=== PATIENT | male | born 1940 | race Two or more races ===

== ENCOUNTER 2024-06-20 20:13 | Inpatient (IN) | payer MEDICARE, OTHER ==
[~2024-06-20] VITALS: Ht 170.2 cm; Wt 87.1 kg
[2024-06-20 21:23] LABS: BASOPHILS % (AUTO) 0.6 % (0.0-2.0); EOSINOPHILS # (AUTO) 0.3 K/uL (0.0-0.7); EOSINOPHILS % (AUTO) 5.5 % (0.0-6.0); HEMATOCRIT 41 % (39-51); HEMOGLOBIN 13.2 g/dL (13.5-17.5); LYMPHOCYTES # (AUTO) 1.7 K/uL (0.8-4.8); LYMPHOCYTES % (AUTO) 26.1 % (20.0-44.0); MEAN CORPUSCULAR HEMOGLOBIN 27 PG (26.0-33.0); MEAN CORPUSCULAR HGB CONC 33 g/dl (31.0-36.0); MEAN CORPUSCULAR VOLUME 83 fL (80-96); MONOCYTES # (AUTO) 0.5 K/uL (0.1-1.30); MONOCYTES % (AUTO) 8.6 % (2.0-12.0); NEUTROPHILS # (AUTO) 3.7 K/uL (1.8-8.9); NEUTROPHILS % (AUTO) 59.2 % (43.0-81.0); PLATELET COUNT (AUTO) 232 K/uL (150-450); RED BLOOD CELL COUNT(AUTO) 4.93 MIL/uL (4.5-6.0); RED CELL DISTRIBUTION WIDTH 15.1 % (11.5-15.0); WHITE BLOOD COUNT (AUTO) 6.3 K/uL (4.3-11.0)
[2024-06-20 21:47] LABS: ALANINE AMINOTRANSFERASE 28 U/L (12-78); ALBUMIN 3.4 g/dL (3.4-5.0); ALCOHOL, BLOOD < 3 mg/dL (0-10); ALKALINE PHOSPHATASE 36 U/L (46-116); ASPARTATE AMINOTRANSFERASE 32 U/L (15-37); BILIRUBIN,DIRECT 0.2 mg/dL (0.0-0.2); BILIRUBIN,TOTAL 0.4 mg/dL (0.2-1.0); CALCIUM, SERUM 9.3 mg/dL (8.5-10.1); CARBON DIOXIDE 29 mmol/L (21-32); CHLORIDE 102 mmol/L (98-107); CREATININE 1.4 mg/dL (0.6-1.3); GLUCOSE 138 mg/dL (74-106); POTASSIUM 4.1 mmol/L (3.5-5.1); SODIUM SERUM 137 mmol/L (136-145); TOTAL PROTEIN, SERUM 7.3 g/dL (6.4-8.2); UREA NITROGEN, BLOOD 25 mg/dL (7-18)
[2024-06-20 21:55] LABS: ACETAMINOPHEN <10 ug/ml (10-30); SALICYLATE 1.1 mg/dL (2.8-20.0)
[2024-06-21 00:24] LABS: APPEARANCE,URINE CLEAR (CLEAR); BILIRUBIN,URINE NEGATIVE (NEGATIVE); BLOOD, URINE NEGATIVE Ery/uL (NEGATIVE); COLOR,URINE YELLOW (YELLOW); KETONES,URINE TRACE mg/dL (NEGATIVE); LEUKOCYTE ESTERASE ,URINE TRACE (NEGATIVE); NITRITE, URINE NEGATIVE (NEGATIVE); PH,URINE 6.5 (5.0-8.0); PROTEIN,URINE NEGATIVE (NEGATIVE); UGLUCOSE NEGATIVE (NEGATIVE); UROBILINOGEN,URINE 0.2 EU/dL (0.2)
[2024-06-21 00:26] LABS: AMPHETAMINE, URINE NEGATIVE (NEGATIVE); BARBITURATE, URINE NEGATIVE (NEGATIVE); BENZODIAZEPINE, URINE NEGATIVE (NEGATIVE); CANNABINOID, URINE NEGATIVE (NEGATIVE); COCCAINE, URINE NEGATIVE (NEGATIVE); OPIATE, URINE NEGATIVE (NEGATIVE); PHENCYCLIDINE SCREEN,URINE NEGATIVE (NEGATIVE)
[2024-06-21 00:32] LABS: ADD URINE CULTURE YES; BACTERIA,URINE Rare /HPF (None Seen); RBC,URINE 0-2 /HPF (0-2); SQUAMOUS EPITHELIAL CELL,UR Few /HPF (None Seen)
[2024-06-21] MEDS ORDERED: MELA5TAB25 PO (01:23)
[2024-06-21] MEDS ORDERED: BUME1TAB8 PO (01:23)
[2024-06-21] MEDS ORDERED: INSU100V39 SQ (01:23)
[2024-06-21] MEDS ORDERED: FLUT1BLS15 INH (01:23)
[2024-06-21] MEDS ORDERED: GUAI100S9 PO (01:23)
[2024-06-21] MEDS ORDERED: MELO-107 PO (01:23)
[2024-06-21] MEDS ORDERED: TRAZ-182 PO (01:23)
[2024-06-21] MEDS ORDERED: GABA-532 PO (01:23)
[2024-06-21] MEDS ORDERED: CLOP75TA15 PO (01:23)
[2024-06-21] MEDS ORDERED: FENO145T21 PO (01:23)
[2024-06-21] MEDS ORDERED: ATOR80TA PO (01:23)
[2024-06-21] MEDS ORDERED: INSU100V7 SQ (01:23)
[2024-06-21] MEDS ORDERED: MECL-182 PO (01:23)
[2024-06-21 01:45] VITALS: BP 156/76; TEMP 97.7; O2SAT 95
[2024-06-21] MEDS ORDERED: ACETAMINOPHEN 325 MG TABLET PO PRN (02:00)
[2024-06-21] MEDS ORDERED: MAGNESIUM HYDROXIDE 30 ML UDC PO PRN (02:00)
[2024-06-21] MEDS ORDERED: MAG HYDROX/AL HYDROX/SIMETH 30 ML UDC PO PRN (02:00)
[2024-06-21] MEDS ORDERED: LORAZEPAM 0.5 MG TABLET PO PRN (02:00)
[2024-06-21] MEDS ORDERED: ZOLPIDEM TARTRATE 5 MG TABLET PO PRN (02:00)
[2024-06-21] MEDS: BLOOD SUGAR DIAGNOSTIC 1 EACH STRIP IN ONE (02:30)
[2024-06-21 02:32] VITALS: BP 156/76; TEMP 98.2; O2SAT 96
[2024-06-21 08:00] VITALS: BP 166/75; TEMP 98; O2SAT 95
[2024-06-21] MEDS ORDERED: BISA5TAB10 PO (08:55)
[2024-06-21] MEDS ORDERED: ACET325T53 PO (08:55)
[2024-06-21] MEDS ORDERED: MAGN400T8 PO (08:55)
[2024-06-21] MEDS ORDERED: BISA10SU11 RC (08:55)
[2024-06-21] MEDS ORDERED: CALC-494 PO (08:55)
[2024-06-21] MEDS ORDERED: ACET-73 PO (08:55)
[2024-06-21] MEDS ORDERED: MELA5TAB PO (08:55)
[2024-06-21] MEDS ORDERED: MAGN400O6 PO (08:55)
[2024-06-21] MEDS ORDERED: MULT-213 PO (08:55)
[2024-06-21] MEDS ORDERED: NA P133E RC (08:55)
[2024-06-21] MEDS: OLANZAPINE 10 MG VIAL IM STA (10:53)
[2024-06-21] MEDS: GABAPENTIN 100 MG CAPSULE PO SCH ×2 (13:00→17:00)
[2024-06-21] MEDS ORDERED: MECLIZINE HCL 12.5 MG TABLET PO PRN (14:00)
[2024-06-21] MEDS ORDERED: BISACODYL SUPP (10 MG) 10 MG/SUPP.RECT SUPP.RECT RC PRN (14:00)
[2024-06-21] MEDS ORDERED: GUAIFENESIN 300 MG/15 ML UDC PO PRN (14:00)
[2024-06-21] MEDS ORDERED: ACETAMINOPHEN ES 500 MG TABLET PO PRN (14:00)
[2024-06-21] MEDS ORDERED: NA PHOS,M-B/NA PHOS,DI-BA 1 EA ENEMA RC PRN (14:00)
[2024-06-21 16:12] VITALS: BP 152/95; TEMP 98; O2SAT 96
[2024-06-21] MEDS: PERMETHRIN 5% CRM 60 GM TUBE TP ONE (19:28)
[2024-06-21] MEDS ORDERED: DEXTROSE 50%-WATER 50 ML DISP.SYRIN IV PRN (20:30)
[2024-06-21 20:45] VITALS: BP 149/62; TEMP 98; O2SAT 100
[2024-06-21] MEDS: TRAZODONE 50 MG TABLET PO SCH (21:12)
[2024-06-21] MEDS: ATORVASTATIN 40 MG TABLET PO SCH (21:12)
[2024-06-21] MEDS: BLOOD SUGAR DIAGNOSTIC 1 EACH STRIP IN SCH (21:15)
[2024-06-21] MEDS: INSULIN GLARGINE, 100 UNIT/ML CARTRIDGE SQ SCH (21:27)
[2024-06-21] MEDS: INSULIN REGULAR, HUMAN 100 UNIT/ML 3 ML VIAL SQ PRN (21:30)
[2024-06-21] MEDS ORDERED: TRAZODONE 50 MG TABLET PO SCH (22:00)
[2024-06-22 08:00] VITALS: BP 132/72; TEMP 98.6; O2SAT 98
[2024-06-22] MEDS ORDERED: CALCIUM CARBONATE 500 MG TAB.CHEW PO PRN (08:00)
[2024-06-22] MEDS: MAGNESIUM OXIDE 400 MG TABLET PO SCH (08:33)
[2024-06-22] MEDS: FENOFIBRATE NANOCRYS (145 MG) 145 MG TABLET PO SCH (08:33)
[2024-06-22] MEDS: CLOPIDOGREL BISULFATE 75 MG TABLET PO SCH (08:33)
[2024-06-22] MEDS: FLUTICASONE/VILANTEROL 1 EACH BLST.W.DEV IH SCH (08:35)
[2024-06-22] MEDS: MULTIVIT W/MINERALS 1 TAB TABLET PO SCH (08:38)
[2024-06-22 16:00] VITALS: BP 125/85; TEMP 98.2; O2SAT 99
[2024-06-22 20:00] VITALS: BP 137/72; TEMP 98.5; O2SAT 96
[2024-06-23 08:00] VITALS: BP 148/79; TEMP 98; O2SAT 97
[2024-06-23] MEDS: MAGNESIUM HYDROXIDE 30 ML UDC PO PRN (08:15)
[2024-06-23 16:00] VITALS: BP 123/60; TEMP 97.7; O2SAT 99
[2024-06-23 20:00] VITALS: BP 113/61; TEMP 97.8; O2SAT 96
[2024-06-24] MEDS: LORAZEPAM 1 MG TABLET PO PRN (06:16)
[2024-06-24 08:00] VITALS: BP 163/81; TEMP 98.8; O2SAT 98
[2024-06-24] MEDS: OLANZAPINE 2.5 MG TABLET PO SCH (11:31)
[2024-06-24 16:00] VITALS: BP 145/79; TEMP 98.6; O2SAT 94
[2024-06-24 21:01] VITALS: BP 156/93; TEMP 98.1; O2SAT 94
[2024-06-24] MEDS: ZOLPIDEM TARTRATE 5 MG TABLET PO PRN (22:53)
[2024-06-24] MEDS ORDERED: Z GUARD REMEDY 4 OZ OINT TP PRN (23:30)
[2024-06-25 07:37] LABS: CALCIUM, SERUM 9.9 mg/dL (8.5-10.1); CREATININE 1.2 mg/dL (0.6-1.3)
[2024-06-25 08:00] VITALS: BP 138/74; TEMP 97.9; O2SAT 94
[2024-06-25] MEDS: BISACODYL (5 MG) 5 MG TABLET.DR PO PRN (11:55)
[2024-06-25 16:00] VITALS: BP 156/85; TEMP 97.5; O2SAT 94
[2024-06-25 20:37] VITALS: BP 107/64; TEMP 97.9; O2SAT 94
[2024-06-26 08:37] VITALS: BP 134/109; TEMP 98; O2SAT 95
[2024-06-26 16:24] VITALS: BP 137/79; TEMP 98.1; O2SAT 96
[2024-06-26 21:25] VITALS: BP 140/90; TEMP 98.3; O2SAT 94
[2024-06-27 08:00] VITALS: BP 150/67; TEMP 97.7; O2SAT 97
[2024-06-27] MEDS: OLANZAPINE 2.5 MG TABLET PO SCH (13:01)
[2024-06-27 16:00] VITALS: BP 131/78; TEMP 98.6; O2SAT 98
[2024-06-28 08:00] VITALS: BP 145/93; TEMP 97.8; O2SAT 97
[2024-06-28 16:00] VITALS: BP 124/77; TEMP 97.9; O2SAT 94
[2024-06-28] MEDS: ACETAMINOPHEN 325 MG TABLET PO PRN (19:49)
[2024-06-28 20:26] VITALS: BP 134/104; TEMP 97.8; O2SAT 96
[2024-06-29 08:00] VITALS: BP 142/76; TEMP 98.6; O2SAT 98
[2024-06-29 08:11] LABS: CHOLESTEROL 90 mg/dL (<200); HDL CHOLESTEROL 32 mg/dL (40-60); LDL 55 mg/dL (0-99); TRIGLYCERIDES 85 mg/dL (30-150)
[2024-06-29] MEDS: OLANZAPINE 2.5 MG TABLET PO SCH (08:47)
[2024-06-29 15:30] VITALS: BP 135/70; TEMP 98.6; O2SAT 97
[2024-06-29 20:00] VITALS: BP 117/55; TEMP 98.1; O2SAT 98
[2024-06-30 08:00] VITALS: BP 122/66; TEMP 98.6; O2SAT 98
[2024-06-30 16:00] VITALS: BP 111/66; TEMP 98.9; O2SAT 96
[2024-06-30 20:00] VITALS: BP 140/80; TEMP 98.4; O2SAT 98
[2024-07-01 08:00] VITALS: BP 137/70; TEMP 97.8; O2SAT 99
== END 2024-07-01 13:30 | DRG 885 ==
LOC: ER 20:15 → GPS 06-21 01:25
PROVIDERS: ADMIT Psychiatry & Neurology Psychiatry; ATTEND Internal Medicine
DX: F39 Unspecified mood [affective] disorder (principal); N17.0 Acute kidney failure with tubular necrosis; E11.65 Type 2 diabetes mellitus with hyperglycemia; I11.0 Hypertensive heart disease with heart failure; F03.93 Unspecified dementia, unspecified severity, with mood disturbance; F03.92 Unspecified dementia, unspecified severity, with psychotic disturbance; I50.32 Chronic diastolic (congestive) heart failure; G93.40 Encephalopathy, unspecified; F03.94 Unspecified dementia, unspecified severity, with anxiety; F29 Unspecified psychosis not due to a substance or known physiological condition; E11.9 Type 2 diabetes mellitus without complications; D64.9 Anemia, unspecified; Z73.6 Limitation of activities due to disability; B86 Scabies; F32.A Depression, unspecified; M89.8X9 Other specified disorders of bone, unspecified site; Z87.891 Personal history of nicotine dependence; I25.2 Old myocardial infarction; I25.10 Atherosclerotic heart disease of native coronary artery without angina pectoris; F41.9 Anxiety disorder, unspecified; Z79.51 Long term (current) use of inhaled steroids; Z79.899 Other long term (current) drug therapy; Z79.4 Long term (current) use of insulin; Z79.02 Long term (current) use of antithrombotics/antiplatelets
CPT/HCPCS: 36415; 70450-TC; 80048-TC; 80061-TC; 80076-TC; 81001; 82962-TC; 85025-TC; 87081-TC; 87086-TC; G0480; J1815; J3490